=== PATIENT | female | born 1995 | race Caucasian/White ===

== ENCOUNTER 2017-12-28 15:22 | Inpatient (IN) | payer BC ==
[2017-12-28] MEDS ORDERED: Sodium Chloride 0.9% 10 ML Syringe FLUSH PRN (15:50)
[2017-12-28] MEDS ORDERED: Lactated Ringers 1,000 ML IV ONE ×2 (16:00→21:58)
[2017-12-28] MEDS ORDERED: Citric Acid/Sodium Citrate Solution 30 ML Cup ONE (16:14)
[2017-12-28] MEDS ORDERED: Metoclopramide 10 MG/2 ML SDV ONE (16:15)
--- NOTE | 2017-12-28 16:33 | PCM.LDHP ---
L&D History of Present Illness - General Date of Service: 12/28/17 Admit Problem/Dx: Patient Status Order with Admit Dx/Problem 12/28/17 15:51 Patient Status [ADT] Routine Admission Diagnosis/Problem Admission Diagnosis/Problem complications 12/28/17 16:23 33-3/7 week IUP, decreased activity, preeclampsia symptoms of swelling, headache, feeling unwell Source of Information: Patient History Limitations: Reports: No Limitations - History of Present Illness Introduction:: Roxann is a 22-year-old 1 para 0 white female presently at 33-2/7 weeks gestational age. who is seen in outpatient labor and delivery for complaints of decreased activity for the last 24 hours. Also reports increased edema, headache yesterday that was treated with Tylenol with no success but then with Advil which did improve it. She denies any headache today. She denies any contractions, bleeding, abdominal pain. She has an PAXTON of 02/13/2018 her history. She reports using C Dr. Coto 3 days ago and have laboratory tests done for high blood pressure. Do not have results of those available at this time. Review of her records shows blood pressure was 142/88 at that time. She reports approximately a 7 pound weight gain over the course of the last week. In the record it reports a 114+ pound weight gain over the course of the thus far. 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 PAXTON set at ultrasound done in mid second trimester. Patient reports she has another ultrasound scheduled for this week to evaluate less than optimal fundal height growth. She is sexually active beers. Had Chlamydia 5 years ago. No control at the time of conception. No abnormal Pap smears reported by the patient. Laboratory testing: One hour GTT 102, blood is A+. Chlamydia test was positive early in the and was treated with azithromycin Allergies: None Medications: 1. Tylenol 2. Aleve Past medical history: 1. Wrist fracture Past surgical history: 1. Tonsillectomy February 2017 Family history: Mother and father alive and well. Patient's 4 sisters all are alive and well. One sister did have a miscarriage. One brother who is alive and well. All grandparents are alive and well with the exception of paternal grandmother has heart disease. The same grandmother also had a set of twins. No bleeding, blood clotting, anesthesia problems noted in the family. Social history: Patient is single, she is not employed. She lives in [place]. Her significant other is Omar Yepez. She denies any significant loss of alcohol, drugs or tobacco. Review of systems: General patient feels somewhat unwell, reports increased swelling over the last several days even more so than she had before. She also reports decreased activity. Patient reports greater than 100 pound weight gain during . Laboratory testing from [facility] on 12/25/2017 show a an AST of 20, and a LT 24. Her hemoglobin, platelet count were normal. Uric acid was 4.6. Today there is a significant increase in her uric acid to 6.4. Her AST is normal at 22 and her a LT is normal at 15. Platelets are 288, white count is 10.72, hemoglobin is 11.9, platelets are 360,000. Ultrasound done in addition to biophysical profile shows a guerrero, viable, intrauterine in a vertex presentation. Amniotic fluid volume is normal with an GRICELDA of approximately 11. Her biophysical profile is 2 on a scale of 10. Only points given for adequate amniotic fluid. There is no tone, no activity and no breathing movements over 30 minutes. Biometrics: Estimated weight is 5 lbs. 3 oz. BPD is 8.6 consistent with 34-6/7 weeks gestational age, head circumference is 30.8 consistent with 34-3/7 weeks gestational age. Abdominal circumference is 30.2 consistent with 34-2/7 weeks gestational age. Femur length is 6.6 consistent with 34-0/7 weeks gestational age. Skin: Feels tight because of swelling. No rashes noted. Cardiovascular: Negative Respiratory: Negative Breasts: Changes associated with GI: Appetite is good. Last bowel movement was yesterday. No diarrhea or constipation or other problems noted. : Decreased activity. Reported less than optimal fundal height growth course last couple weeks with resultant order for ultrasound next week Musculoskeletal/extremities: Significant increase in swelling over the but especially within the last week. Neurological: Headache yesterday, none today. Treated headache with Tylenol and Aleve. Aleve brought reasonable results. physical exam: In general patient is a well-developed, well-nourished obese white female in no acute distress. She is alert and oriented 3. History of stated age Vital signs: Blood pressures ranging in the 140-160/85-105 range. Most recent blood pressure is 173/103. Findings consistent with preeclampsia with severe features. Skin is warm and dry without lesions. Patient has significant swelling in the lower extremities to 1+ pitting edema at minimum. HEENT, neck and back within normal limits. No thyromegaly noted Lungs are clear with good breath sounds in all lung flores. Cardiovascular exam shows regular without murmurs. Breast exam deferred. Abdomen is protuberant with fundal height of 34 cm. Baby in vertex presentation by Michele's Extremities show significant swelling in bilateral lower extremities. Neurological exam show 3+ deep tendon reflexes in the lower extremities. Upper extremity DTRs bilaterally are within normal limits. - Related Data Allergies/Adverse Reactions: Allergies Allergy/AdvReac Type Severity Reaction Status Date / Time No Known Allergies Allergy Verified 06/25/15 10:39 Home Medications: Home Meds . [No Known Home Meds] 06/25/15 [History] Past Medical History - Past Health History Medical/Surgical History: Denies Medical/Surgical History Social & Family History - Tobacco Use Smoking Status *Q: Never Smoker Second Hand Smoke Exposure: No - Recreational Drug Use Recreational Drug Use: No H&P Review of Systems - Review of Systems: Review Of Systems: See Below L&D Exam - Exam Exam: See Below - Vital Signs Vital Signs: Last Vital Signs Temp 37.1 C 12/28/17 15:38 Pulse 71 12/28/17 15:38 Resp 18 12/28/17 15:38 BP 145/98 H 12/28/17 15:38 Pulse Ox 99 12/28/17 15:38 Weight: 137.892 kg - Patient Data Lab Results Last 24 hrs: Laboratory Results - last 24 hr 12/28/17 Range/Units 16:00 WBC 10.72 H (3.98-10.04) K/mm3 RBC 4.38 (3.98-5.22) M/mm3 Hgb 11.9 (11.2-15.7) gm/L Hct 36.0 (34.1-44.9) % MCV 82.2 (79.4-94.8) fl MCH 27.2 (25.6-32.2) pg MCHC 33.1 (32.2-35.5) g/dl RDW Std Deviation 37.7 (36.4-46.3) fL Plt Count 282 (182-369) K/mm3 MPV 10.4 (9.4-12.3) fl Neut % (Auto) 79.4 H (34.0-71.1) % Lymph % (Auto) 12.7 L (19.3-51.7) % Harper % (Auto) 6.2 (4.7-12.5) % Eos % (Auto) 0.7 (0.7-5.8) Baso % (Auto) 0.3 (0.1-1.2) % Neut # (Auto) 8.52 H (1.56-6.13) K/mm3 Lymph # (Auto) 1.36 (1.18-3.74) K/mm3 Harper # (Auto) 0.66 H (0.24-0.36) K/mm3 Eos # (Auto) 0.07 (0.04-0.36) K/mm3 Baso # (Auto) 0.03 (0.01-0.08) K/mm3 Result Diagrams: 12/28/17 16:00 Problem List Initiated/Reviewed/Updated: Yes Orders Last 24hrs: Active Orders 24 hr Category Date Time Status Patient Status [ADT] Routine ADT 12/28/17 15:51 Active Non Stress Test [RC] PER UNIT ROUTINE Care 12/28/17 15:51 Active Peripheral IV Care [RC] . DIRECTED Care 12/28/17 15:52 Active Vital Signs [RC] PER UNIT ROUTINE Care 12/28/17 15:51 Active BPP wo NST [US] Stat Exams 12/28/17 16:05 Ordered ALANINE AMINOTRANSFERASE,ALT [CHEM] Stat Lab 12/28/17 16:00 Received ASPARTATE AMNIOTRANSFERASE,AST [CHEM] Stat Lab 12/28/17 16:00 Received LACTIC ACID [CHEM] Stat Lab 12/28/17 16:05 Received UA W/O MICROSCOPIC [URIN] Routine Lab 12/28/17 15:49 Ordered URIC ACID [CHEM] Stat Lab 12/28/17 16:00 Received Lactated Ringers [Ringers, Lactated] 1,000 ml Med 12/28/17 16:00 Active IV ONETIME Sodium Chloride 0.9% [Saline Flush] Med 12/28/17 15:50 Active 10 ml FLUSH ASDIRECTED PRN Peripheral IV Insertion Adult [OM.PC] Urgent Oth 12/28/17 15:50 Ordered Resuscitation Status Routine Resus Stat 12/28/17 15:50 Ordered Medication Orders Lactated Ringer's (Ringers, Lactated) 1,000 mls @ 500 mls/hr IV ONETIME ONE Stop: 12/28/17 17:59 Sodium Chloride (Saline Flush) 10 ml FLUSH ASDIRECTED PRN PRN Reason: Keep Vein Open Assessment/Plan Comment:: Assessment: 1. 33 and 2/7 week intrauterine with preeclampsia with severe features. 2. Nonreassuring testing with biophysical profile score of 2 out of 10. No tone, activity, breathing movements noted. Nonstress test is nonreactive. 3. Risk factors for surgery include: Preeclampsia, obesity, 33-2/7 weeks gestational age. 4. Blood is A+. 5. Patient undecided about nursing. 6. Group B strep status unknown-group B strep screen has been done and is pending Plan: 1. We'll arrange for delivery of the baby. Primary section is discussed in detail with the patient. Included in discussion are details about the procedure, risks, benefits, alternatives of care discussed in detail the patient. She appears to understand and wishes to proceed. She has signed a consent. She is aware that baby may need to be transferred for intensive care unit evaluation and care. Do not feel that time necessary for maternal transfer to tertiary level Center can be justified because of the nonreassuring testing 2. DVT prophylaxis with SCDs 3. Ancef 3 g IV preop 4. Type and screen to be done. 5. Dr. Kat-associate professor of library science to be in attendance for delivery 6. Will start magnesium sulfate postoperatively 7. Treat blood pressure as indicated postoperatively with labetalol.
[2017-12-28] MEDS ORDERED: Dextrose 5%-Lactated Ringers 1,000 ML IV SCH ×2 (17:00→19:40)
[2017-12-28] MEDS ORDERED: Metoclopramide 10 MG/2 ML SDV IVPUSH ONE ×2 (17:16→17:29)
[2017-12-28] MEDS ORDERED: Citric Acid/Sodium Citrate Solution 30 ML Cup PO ONE ×2 (17:16→17:29)
[2017-12-28] MEDS ORDERED: Morphine PF 10 MG/10 ML SDV ONE (17:18)
[2017-12-28] MEDS ORDERED: Oxytocin 10 Units/1 ML SDV ONE (17:19)
[2017-12-28] MEDS ORDERED: Ondansetron 4 MG/2 ML SDV ONE (17:20)
[2017-12-28] MEDS ORDERED: ceFAZolin 1 GM Vial ONE ×2 (17:21→18:09)
[2017-12-28] MEDS ORDERED: Bupivacaine 0.5% 30 ML SDV ONE (17:23)
--- NOTE | 2017-12-28 17:29 | US ---
Biophysical profile: Multiple real-time images were obtained. Comparison: No prior study available for current . Dates: Current ultrasound: PAXTON 02/05/18, gestational age 34 weeks 3 days presentation: Cephalic Placenta: Left lateral Amniotic fluid: GRICELDA of 11.5 cm Measurements: BPD: 8.61 cm - 34 weeks 6 days Head circumference: 30.81 cm - 34 weeks 3 days Abdominal circumference: 30.21 cm - 34 weeks 2 days Femur length: 6.58 cm - 34 weeks 0 days Estimated weight: 2366 g (5 lbs. 3 oz.), estimated weight of 37th percentile for age by current ultrasound Heart rate: 153 BPM Cervical length: Not well-visualized, not measured Biophysical profile: movement 0, breathing movement 0, tone 0, amniotic fluid volume 2 Impression: 1. Single intrauterine fetus currently cephalic in presentation. Dates as noted above. 2. Biophysical profile shows a score of 2 out of 8. Diagnostic code #5 Scanning technologist gave a preliminary report to Dr. Knight after the exam's completion.
[2017-12-28] MEDS ORDERED: Oxytocin/Lactated Ringers 10 UNIT/1,000 ML BAG IV SCH (17:30)
[2017-12-28] MEDS ORDERED: Lidocaine 1% 4 ML ONE (17:57)
[2017-12-28] MEDS ORDERED: Meperidine PF 50 MG/ML Syringe ONE (18:14)
[2017-12-28] MEDS ORDERED: fentaNYL 100 MCG/2 ML SDV ONE (18:39)
--- NOTE | 2017-12-28 18:57 | PCM.PREANE ---
Preanesthetic Assessment - Procedure Proposed Procedure: Emergent C Section - Anesthesia/Transfusion/Family Hx Anesthesia History: Prior Anesthesia Without Reaction Family History of Anesthesia Reaction: No Transfusion History: No Prior Transfusion(s) - Review of Systems General: No Symptoms Pulmonary: No Symptoms Cardiovascular: No Symptoms Gastrointestinal: No Symptoms Neurological: No Symptoms Other: Reports: None - Physical Assessment NPO Status Date: 12/28/17 NPO Status Time: 14:00 Pulse: 75 O2 Sat by Pulse Oximetry: 98 Respiratory Rate: 24 Blood Pressure: 137/84 Temperature: 36.6 C Vital Signs: Last Vital Signs Temp 37.1 C 12/28/17 15:38 Pulse 71 12/28/17 15:38 Resp 18 12/28/17 15:38 BP 145/98 H 12/28/17 15:38 Pulse Ox 99 12/28/17 15:38 Height: 1.68 m Weight: 137.892 kg ASA Class: 2E Mental Status: Alert & Oriented x3 Airway Class: Mallampati = 2 Dentition: Reports: Normal Dentition Thyro-Mental Finger Breadths: 3 Mouth Opening Finger Breadths: 3 ROM/Head Extension: Full Lungs: Clear to Auscultation, Normal Respiratory Effort Cardiovascular: Regular Rate, Regular Rhythm - Lab Values: Laboratory Last Values WBC 10.72 K/mm3 (3.98-10.04) H 12/28/17 16:00 RBC 4.38 M/mm3 (3.98-5.22) 12/28/17 16:00 Hgb 11.9 gm/L (11.2-15.7) 12/28/17 16:00 Hct 36.0 % (34.1-44.9) 12/28/17 16:00 MCV 82.2 fl (79.4-94.8) 12/28/17 16:00 MCH 27.2 pg (25.6-32.2) 12/28/17 16:00 MCHC 33.1 g/dl (32.2-35.5) 12/28/17 16:00 RDW Std Deviation 37.7 fL (36.4-46.3) 12/28/17 16:00 Plt Count 282 K/mm3 (182-369) 12/28/17 16:00 MPV 10.4 fl (9.4-12.3) 12/28/17 16:00 Neut % (Auto) 79.4 % (34.0-71.1) H 12/28/17 16:00 Lymph % (Auto) 12.7 % (19.3-51.7) L 12/28/17 16:00 Lyon % (Auto) 6.2 % (4.7-12.5) 12/28/17 16:00 Eos % (Auto) 0.7 (0.7-5.8) 12/28/17 16:00 Baso % (Auto) 0.3 % (0.1-1.2) 12/28/17 16:00 Neut # (Auto) 8.52 K/mm3 (1.56-6.13) H 12/28/17 16:00 Lymph # (Auto) 1.36 K/mm3 (1.18-3.74) 12/28/17 16:00 Lyon # (Auto) 0.66 K/mm3 (0.24-0.36) H 12/28/17 16:00 Eos # (Auto) 0.07 K/mm3 (0.04-0.36) 12/28/17 16:00 Baso # (Auto) 0.03 K/mm3 (0.01-0.08) 12/28/17 16:00 Lactic Acid 1.2 mmol/L (0.4-2.0) 12/28/17 16:05 Uric Acid 6.4 mg/dL (2.6-6.0) H 12/28/17 16:00 AST 22 U/L (15-37) 12/28/17 16:00 ALT 15 U/L (14-59) 12/28/17 16:00 Urine Color Yellow (Yellow) 12/28/17 15:49 Urine Appearance Slt cloudy (Clear) H 12/28/17 15:49 Urine pH 6.0 (5.0-8.0) 12/28/17 15:49 Ur Specific [place] 1.020 (1.005-1.030) 12/28/17 15:49 Urine Protein 3+ (Negative) H 12/28/17 15:49 Urine Glucose (UA) Negative (Negative) 12/28/17 15:49 Urine Ketones Negative (Negative) 12/28/17 15:49 Urine Occult Blood 1+ (Negative) H 12/28/17 15:49 Urine Nitrite Negative (Negative) 12/28/17 15:49 Urine Bilirubin Negative (Negative) 12/28/17 15:49 Urine Urobilinogen 0.2 (0.2-1.0) 12/28/17 15:49 Ur Leukocyte Esterase Negative (Negative) 12/28/17 15:49 Blood Type A POSITIVE 12/28/17 16:00 Gel Antibody Screen Negative 12/28/17 16:00 - Allergies Allergies/Adverse Reactions: Allergies Allergy/AdvReac Type Severity Reaction Status Date / Time No Known Allergies Allergy Verified 06/25/15 10:39 - Blood Blood Available: No Product(s) Available: None - Anesthesia Plan Pre-Op Medication Ordered: None - Acknowledgements Anesthesia Type Planned: Spinal (with duramorph as Ok'd with Dr Knight) Pt an Appropriate Candidate for the Planned Anesthesia: Yes Alternatives and Risks of Anesthesia Discussed w Pt/Guardian: Yes Pt/Guardian Understands and Agrees with Anesthesia Plan: Yes PreAnesthesia Questionnaire - Past Health History Medical/Surgical History: Denies Medical/Surgical History - SUBSTANCE USE Smoking Status *Q: Never Smoker Second Hand Smoke Exposure: No Recreational Drug Use History: No - HOME MEDS Home Medications: Home Meds . [No Known Home Meds] 06/25/15 [History] - CURRENT (IN HOUSE) MEDS Current Meds: Current Medications Dextrose/Lactated Ringer's (Dextrose 5%-Lactated Ringers) 1,000 mls @ 500 mls/ hr IV ASDIRECTED BALDEV Last Admin: 12/28/17 16:50 Dose: 500 mls/hr Oxytocin/Lactated Ringer's (Pitocin In Lr 10 Units/1,000 Ml) 10 unit in 1,000 mls @ 100 mls/hr IV ASDIRECTED BALDEV; Protocol Sodium Chloride (Saline Flush) 10 ml FLUSH ASDIRECTED PRN PRN Reason: Keep Vein Open Discontinued Medications Bupivacaine HCl (Marcaine 0.5%) Confirm Administered Dose 30 ml .ROUTE .STK-MED ONE Stop: 12/28/17 17:24 Cefazolin Sodium (Ancef) Confirm Administered Dose 2 gm .ROUTE .STK-MED ONE Stop: 12/28/17 17:22 Cefazolin Sodium (Ancef) Confirm Administered Dose 1 gm .ROUTE .STK-MED ONE Stop: 12/28/17 18:10 Citric Acid/Sodium Citrate (Bicitra Solution) Confirm Administered Dose 30 ml .ROUTE .STK-MED ONE Stop: 12/28/17 16:15 Citric Acid/Sodium Citrate (Bicitra Solution) 30 ml PO ONETIME ONE Stop: 12/28/17 17:17 Citric Acid/Sodium Citrate (Bicitra Solution) 30 ml PO ONETIME ONE Stop: 12/28/17 17:30 Fentanyl (Sublimaze) Confirm Administered Dose 100 mcg .ROUTE .STK-MED ONE Stop: 12/28/17 18:40 Lactated Ringer's (Ringers, Lactated) 1,000 mls @ 500 mls/hr IV ONETIME ONE Stop: 12/28/17 17:59 Last Admin: 12/28/17 16:00 Dose: 500 mls/hr Lidocaine HCl (Xylocaine-Mpf 1%) Confirm Administered Dose 4 mls @ as directed .ROUTE .STK-MED ONE Stop: 12/28/17 17:58 Meperidine HCl (Demerol) Confirm Administered Dose 50 mg .ROUTE .STK-MED ONE Stop: 12/28/17 18:15 Metoclopramide HCl (Reglan) Confirm Administered Dose 10 mg .ROUTE .STK-MED ONE Stop: 12/28/17 16:16 Metoclopramide HCl (Reglan) 10 mg IVPUSH ONETIME ONE Stop: 12/28/17 17:17 Metoclopramide HCl (Reglan) 10 mg IVPUSH ONETIME ONE Stop: 12/28/17 17:30 Morphine Sulfate (Duramorph Pf) Confirm Administered Dose 10 mg .ROUTE .STK-MED ONE Stop: 12/28/17 17:19 Ondansetron HCl (Zofran) Confirm Administered Dose 4 mg .ROUTE .STK-MED ONE Stop: 12/28/17 17:21 Oxytocin (Pitocin) Confirm Administered Dose 20 unit .ROUTE .STK-MED ONE Stop: 12/28/17 17:20
[2017-12-28] MEDS ORDERED: fentaNYL 100 MCG/2 ML SDV IVPUSH PRN (18:59)
[2017-12-28] MEDS ORDERED: Ondansetron 4 MG/2 ML SDV IVPUSH PRN (18:59)
[2017-12-28] MEDS ORDERED: HYDROmorphone 0.5 MG/0.5 ML SYRINGE IV ONE (18:59)
[2017-12-28] MEDS ORDERED: diphenhydrAMINE 50 MG/ML SDV IVPUSH PRN ×2 (18:59→19:40)
[2017-12-28] MEDS ORDERED: Meperidine PF 50 MG/ML Syringe IVPUSH PRN (18:59)
--- NOTE | 2017-12-28 19:02 | PCM.POSTAN ---
POST ANESTHESIA ASSESSMENT - MENTAL STATUS Mental Status: Alert, Oriented - VITAL SIGNS Pulse Rate: 68 SaO2: 99 Resp Rate: 20 Blood Pressure: 137/84 Temperature: 36.6 C - RESPIRATORY Respiratory Status: Respiratory Rate WNL, Airway Patent, O2 Saturation Stable, Elevated Respiratory Rate - CARDIOVASCULAR CV Status: Pulse Rate WNL, Blood Pressure Stable - GASTROINTESTINAL GI Status: No Symptoms - PAIN Pain Score: 2 (fentanyl given ) - POST OP HYDRATION Hydration Status: Adequate & Stable
--- NOTE | 2017-12-28 19:06 | PCM.OPNOTE ---
- General Post-Op/Procedure Note Date of Surgery/Procedure: 12/28/17 Operative Procedure(s): Emergent primary lower uterine segment transverse section through Pfannenstiel skin incision Findings: Uterus tubes and ovaries are consistent with a 33 week . There were normal in all appearance. Amniotic fluid was clear. Baby is in a vertex presentation. Normal amniotic fluid volume. Pre Op Diagnosis: 1. Nonreassuring testing-BPP score 2/10. 2. Preeclampsia with severe features. 3. 33-2/7 week intrauterine . 4. Reported decreased activity Post-Op Diagnosis: Same with delivery of a 5 # 1 oz male with Apgars of 0 , 1 and 7 at one, five and 10 mnutes respectively. Anesthesia Technique: Local, Spinal Other Anesthesia Type: Marcaine 0.5%20 mL local Primary Surgeon: Dejon Knight Secondary Surgeon: Moe Gregory Anesthesia Provider: Clarke Blanton Reason Dirt Contractor Was Necessary: Retraction, assistance, patient safety, quality of care. Role of Dirt Contractor: Retraction and assistance Pathology: Placenta Fluid Replacement, Intraop: 1,600 Output, Urine Amount: 200 EBL in mLs: 700 Drain/Tube Comments:: Indwelling bladder catheter Complications: None Condition: Good Free Text/Narrative:: Intake & Output 12/28/17 12/28/17 12/28/17 06:59 14:59 22:59 Intake Total 800 Balance 800 Surgery duration: 31 minutes Procedure: Patient was transferred to the room and placed in a sitting position. Spinal anesthesia was administered. After confirmation of adequate anesthesia patient was placed in a supine position with a wedge under her right side to facilitate left lateral positioning. The patient was prepped and draped in usual fashion after [place] catheter was already placed . The anesthetic was checked and found to be adequate. 20 mL of Marcaine 0.5% was injected locally in the Pfannenstiel incision site. The Pfannenstiel skin incision was then made carried down to skin subcutaneous and fascial layers. The fascia was then undermined superiorly and inferiorly to allow for adequate operating room. The recti muscles were midline and preperitoneal fat was bluntly dissected. Peritoneal cavity was entered longitudinally. The vesicouterine peritoneum was then incised transversely and bladder flap was developed. Myometrium was incised transversely to the level of the amniotic sac. This incision was extended bilaterally in a blunt fashion. The amniotic sac was then ruptured resulting clear amniotic fluid. A hand is placed in the low uterine segment and the baby's head was brought forth through the incision. The baby was completely delivered using fundal pressure in a routine fashion. Baby's cord was clamped x2 cut and baby was handed off to attending chief service dispatcher Dr Kat. Placenta was expressed after cord blood was obtained. Uterus was then exteriorized to allow for easier closure. The cervix was assessed and found to be dilated adequately to allow egress of blood. The uterus was closed in 2 layers. The first layer a running locked suture of 0 Monocryl, the second layer a running locked vertical mattress suture of 0 Monocryl. [id number] suture was placed at the left incision to control 1 bleeder. Hemostasis confirmed at this time. Sponge instrument needle counts are correct. The uterus was returned to the abdominal cavity and lateral gutters were cleared of blood. Once again sponge needle counts are correct. The anterior abdominal wall was closed with a #1 PDS suture from angle to angle. The subcutaneous area was found to be free of any bleeders. 3 interrupted sutures of 0 Monocryl were used to reapproximate the subcutaneous layer.Skin was closed with a running subcuticular stitch of 3-0 Monocryl in a vertical mattress suture fashion using a Nir needle. Prineo mesh/glue was then applied to further approximate the incision. It should be noted that patient received 3 g of Ancef preoperatively for infection prophylaxis and had Pitocin infused after delivery of the placenta to facilitate uterine contraction. She also had sequential compression stockings in place for DVT prophylaxis. Patient was discharged from the operating room in satisfactory condition.
[2017-12-28] MEDS ORDERED: Naloxone 0.4 MG/ML SDV IVPUSH PRN (19:40)
[2017-12-28] MEDS ORDERED: Lanolin 100% Cream 7 GM Tube TOP PRN (19:40)
[2017-12-28] MEDS ORDERED: Docusate Sodium 100 MG Cap PO PRN (19:40)
[2017-12-28] MEDS ORDERED: Ondansetron 4 MG/2 ML SDV IV PRN (19:40)
[2017-12-28] MEDS ORDERED: Acetaminophen/oxyCODONE 325-5 MG Tab PO PRN (19:40)
[2017-12-28] MEDS ORDERED: Magnesium Sulfate/Water 2 GM in Premix Bag 1 BAG IV SCH ×2 (19:40→21:15)
[2017-12-28] MEDS ORDERED: ePHEDrine 50 MG/ML SDV IVPUSH PRN (19:40)
[2017-12-28] MEDS ORDERED: Ibuprofen 800 MG Tab PO SCH (19:40)
[2017-12-28] MEDS: Magnesium Sulfate/Water 2 GM in Premix Bag 1 BAG IV SCH ×2 (20:15→20:30)
[2017-12-28] MEDS ORDERED: Magnesium Sulfate/Water 4 GM in Premix Bag 1 BAG IV SCH (20:40)
[2017-12-28] MEDS ORDERED: Simethicone 80 MG Tab.Chew PO SCH (22:00)
[2017-12-28] MEDS ORDERED: Magnesium Sulfate/Water 40 GM/1,000 ML BAG IV SCH (23:00)
[2017-12-29] MEDS ORDERED: Magnesium Sulfate/Water 40 GM/1,000 ML BAG IV SCH (00:15)
--- NOTE | 2017-12-29 05:29 | PCM.DCSUM1 ---
Discharge Summary - Hospital Course Free Text/Narrative:: Josephine is a 22-year-old 1 now para 0101 white female who is admitted on 12/28/2017 with reported decrease in activity. Patient is noted to have preeclampsia with severe features, nonreassuring testing with biophysical profile score of 2 out of 10. She was taken for emergent section to effect delivery of the baby. The baby was 5 lbs. 1 oz. male with Apgars of 0, 1 and 7 at one, 5 and 10 minutes respectively. Baby has since been transferred to [facility] [place]. The baby is doing poorly at this time and the staff as requested [id number] transferred to be with her critically ill . The patient herself is doing very well. She was placed on magnesium sulfate IV after delivery for the history of preeclampsia. Her blood pressure has been borderline to normal since delivery, urine output has been satisfactory and her reflexes are 2+/4. She is stable at this point. Her magnesium levels have been in therapeutic range. She is requesting transfer to [place] via ambulance to be with her critically ill child. - Discharge Data Discharge Date: 12/29/17 Discharge Disposition: Home, Self-Care 01 Condition: Good - Patient Summary/Data Operative Procedure(s) Performed: Emergent primary lower uterine segment transverse section through Pfannenstiel skin incision - Patient Instructions Diet: Regular Diet as Tolerated Activity: As Tolerated (No intercourse or tampons until seen back. No lifting greater than 15 pounds 1 week. No driving a car 1 week.) Driving: Do Not Drive Showering/Bathing: May Shower Wound/Incision Care: Keep Operative Site/Wound Site Clean and Dry Notify Provider of: Fever, Increased Pain, Swelling and Redness, Nausea and/or Vomiting - Discharge Plan Home Medications: Home Meds . [No Known Home Meds] 06/25/15 [History] Referrals: Yancy Babb MD [Primary Care Provider] - - Discharge Summary/Plan Comment DC Time >30 min.: No Discharge Summary/Plan Comment: Patient is being transferred to another hospital facility. There'll be seamless transfer of IV and medication care. Diet is regular, activity is as tolerated. - Patient Data Vitals - Most Recent: Last Vital Signs Temp 37.2 C 12/28/17 19:25 Pulse 68 12/28/17 19:02 Resp 14 12/28/17 19:40 BP 146/87 H 12/28/17 19:40 Pulse Ox 98 12/28/17 19:40 Weight - Most Recent: 137.892 kg I&O - Last 24 hours: Intake & Output 12/28/17 12/28/17 12/29/17 14:59 22:59 06:59 Intake Total 950 1600 Output Total 225 200 Balance 725 1400 Lab Results - Last 24 hrs: Laboratory Results - last 24 hr 12/28/17 12/28/17 12/28/17 Range/Units 15:49 16:00 16:00 WBC 10.72 H (3.98-10.04) K/mm3 RBC 4.38 (3.98-5.22) M/mm3 Hgb 11.9 (11.2-15.7) gm/L Hct 36.0 (34.1-44.9) % MCV 82.2 (79.4-94.8) fl MCH 27.2 (25.6-32.2) pg MCHC 33.1 (32.2-35.5) g/dl RDW Std Deviation 37.7 (36.4-46.3) fL Plt Count 282 (182-369) K/mm3 MPV 10.4 (9.4-12.3) fl Neut % (Auto) 79.4 H (34.0-71.1) % Lymph % (Auto) 12.7 L (19.3-51.7) % Hall % (Auto) 6.2 (4.7-12.5) % Eos % (Auto) 0.7 (0.7-5.8) Baso % (Auto) 0.3 (0.1-1.2) % Neut # (Auto) 8.52 H (1.56-6.13) K/mm3 Lymph # (Auto) 1.36 (1.18-3.74) K/mm3 Hall # (Auto) 0.66 H (0.24-0.36) K/mm3 Eos # (Auto) 0.07 (0.04-0.36) K/mm3 Baso # (Auto) 0.03 (0.01-0.08) K/mm3 Sodium (136-145) mEq/L Potassium (3.5-5.1) mEq/L Chloride (98-107) mEq/L Carbon Dioxide (21-32) mEq/L Anion Gap (5-15) BUN (7-18) mg/dL Creatinine (0.55-1.02) mg/dL Est Cr Clr Drug Dosing mL/min Estimated GFR (MDRD) (>60) mL/min BUN/Creatinine Ratio (14-18) Glucose (74-106) mg/dL Lactic Acid (0.4-2.0) mmol/L Uric Acid 6.4 H (2.6-6.0) mg/dL Calcium (8.5-10.1) mg/dL Magnesium (1.8-2.4) mg/dl Total Bilirubin (0.2-1.0) mg/dL AST 22 (15-37) U/L ALT 15 (14-59) U/L Alkaline Phosphatase (46-116) U/L Total Protein (6.4-8.2) g/dl Albumin (3.4-5.0) g/dl Globulin gm/dL Albumin/Globulin Ratio (1-2) Urine Color Yellow (Yellow) Urine Appearance Slt cloudy H (Clear) Urine pH 6.0 (5.0-8.0) Ur Specific Gabbs 1.020 (1.005-1.030) Urine Protein 3+ H (Negative) Urine Glucose (UA) Negative (Negative) Urine Ketones Negative (Negative) Urine Occult Blood 1+ H (Negative) Urine Nitrite Negative (Negative) Urine Bilirubin Negative (Negative) Urine Urobilinogen 0.2 (0.2-1.0) Ur Leukocyte Esterase Negative (Negative) Blood Type Gel Antibody Screen 12/28/17 12/28/17 12/28/17 Range/Units 16:00 16:05 23:06 WBC (3.98-10.04) K/mm3 RBC (3.98-5.22) M/mm3 Hgb (11.2-15.7) gm/L Hct (34.1-44.9) % MCV (79.4-94.8) fl MCH (25.6-32.2) pg MCHC (32.2-35.5) g/dl RDW Std Deviation (36.4-46.3) fL Plt Count (182-369) K/mm3 MPV (9.4-12.3) fl Neut % (Auto) (34.0-71.1) % Lymph % (Auto) (19.3-51.7) % Hall % (Auto) (4.7-12.5) % Eos % (Auto) (0.7-5.8) Baso % (Auto) (0.1-1.2) % Neut # (Auto) (1.56-6.13) K/mm3 Lymph # (Auto) (1.18-3.74) K/mm3 Hall # (Auto) (0.24-0.36) K/mm3 Eos # (Auto) (0.04-0.36) K/mm3 Baso # (Auto) (0.01-0.08) K/mm3 Sodium (136-145) mEq/L Potassium (3.5-5.1) mEq/L Chloride (98-107) mEq/L Carbon Dioxide (21-32) mEq/L Anion Gap (5-15) BUN (7-18) mg/dL Creatinine (0.55-1.02) mg/dL Est Cr Clr Drug Dosing mL/min Estimated GFR (MDRD) (>60) mL/min BUN/Creatinine Ratio (14-18) Glucose (74-106) mg/dL Lactic Acid 1.2 (0.4-2.0) mmol/L Uric Acid (2.6-6.0) mg/dL Calcium (8.5-10.1) mg/dL Magnesium 3.7 H (1.8-2.4) mg/dl Total Bilirubin (0.2-1.0) mg/dL AST (15-37) U/L ALT (14-59) U/L Alkaline Phosphatase (46-116) U/L Total Protein (6.4-8.2) g/dl Albumin (3.4-5.0) g/dl Globulin gm/dL Albumin/Globulin Ratio (1-2) Urine Color (Yellow) Urine Appearance (Clear) Urine pH (5.0-8.0) Ur Specific Gabbs (1.005-1.030) Urine Protein (Negative) Urine Glucose (UA) (Negative) Urine Ketones (Negative) Urine Occult Blood (Negative) Urine Nitrite (Negative) Urine Bilirubin (Negative) Urine Urobilinogen (0.2-1.0) Ur Leukocyte Esterase (Negative) Blood Type A POSITIVE Gel Antibody Screen Negative 12/29/17 12/29/17 12/29/17 Range/Units 04:09 04:09 04:09 WBC 13.22 H (3.98-10.04) K/mm3 RBC 4.42 (3.98-5.22) M/mm3 Hgb 12.1 (11.2-15.7) gm/L Hct 36.1 (34.1-44.9) % MCV 81.7 (79.4-94.8) fl MCH 27.4 (25.6-32.2) pg MCHC 33.5 (32.2-35.5) g/dl RDW Std Deviation 37.8 (36.4-46.3) fL Plt Count 268 (182-369) K/mm3 MPV 10.6 (9.4-12.3) fl Neut % (Auto) 78.1 H (34.0-71.1) % Lymph % (Auto) 15.4 L (19.3-51.7) % Hall % (Auto) 5.5 (4.7-12.5) % Eos % (Auto) 0.3 L (0.7-5.8) Baso % (Auto) 0.2 (0.1-1.2) % Neut # (Auto) 10.33 H (1.56-6.13) K/mm3 Lymph # (Auto) 2.03 (1.18-3.74) K/mm3 Hall # (Auto) 0.73 H (0.24-0.36) K/mm3 Eos # (Auto) 0.04 (0.04-0.36) K/mm3 Baso # (Auto) 0.03 (0.01-0.08) K/mm3 Sodium 136 (136-145) mEq/L Potassium 4.2 (3.5-5.1) mEq/L Chloride 104 (98-107) mEq/L Carbon Dioxide 24 (21-32) mEq/L Anion Gap 12.2 (5-15) BUN 19 H (7-18) mg/dL Creatinine 1.0 (0.55-1.02) mg/dL Est Cr Clr Drug Dosing 82.61 mL/min Estimated GFR (MDRD) > 60 (>60) mL/min BUN/Creatinine Ratio 19.0 H (14-18) Glucose 84 (74-106) mg/dL Lactic Acid (0.4-2.0) mmol/L Uric Acid 6.5 H (2.6-6.0) mg/dL Calcium 8.4 L (8.5-10.1) mg/dL Magnesium 5.6 H (1.8-2.4) mg/dl Total Bilirubin 0.2 (0.2-1.0) mg/dL AST 25 (15-37) U/L ALT 14 (14-59) U/L Alkaline Phosphatase 92 (46-116) U/L Total Protein 5.4 L (6.4-8.2) g/dl Albumin 2.0 L (3.4-5.0) g/dl Globulin 3.4 gm/dL Albumin/Globulin Ratio 0.6 L (1-2) Urine Color (Yellow) Urine Appearance (Clear) Urine pH (5.0-8.0) Ur Specific Gabbs (1.005-1.030) Urine Protein (Negative) Urine Glucose (UA) (Negative) Urine Ketones (Negative) Urine Occult Blood (Negative) Urine Nitrite (Negative) Urine Bilirubin (Negative) Urine Urobilinogen (0.2-1.0) Ur Leukocyte Esterase (Negative) Blood Type Gel Antibody Screen Med Orders - Current: Current Medications Diphenhydramine HCl (Benadryl) 25 mg IVPUSH Q6H PRN PRN Reason: Pruritis Diphenhydramine HCl (Benadryl) 25 mg IVPUSH Q6H PRN PRN Reason: Itching or Nausea Docusate Sodium (Colace) 100 mg PO Q12H PRN PRN Reason: Constipation Emollient Ointment (Lansinoh Hpa) 0 gm TOP ASDIRECTED PRN PRN Reason: Sore Nipples Ephedrine Sulfate (Ephedrine Sulfate) 5 mg IVPUSH SEECOMMENT PRN PRN Reason: Other Fentanyl (Sublimaze) 50 mcg IVPUSH Q5M PRN PRN Reason: Pain Dextrose/Lactated Ringer's (Dextrose 5%-Lactated Ringers) 1,000 mls @ 100 mls/ hr IV ASDIRECTED BALDEV Stop: 12/29/17 05:39 Last Infusion: 12/29/17 01:10 Dose: 75 mls/hr Magnesium Sulfate (Magnesium Sulfate 40 Gm In Water 1000 Ml) 40 gm in 1,000 mls @ 50 mls/hr IV ASDIRECTED [facility] Last Infusion: 12/29/17 01:10 Dose: 75 mls/hr Ibuprofen (Motrin) 800 mg PO Q8H [facility] Last Admin: 12/29/17 04:27 Dose: 800 mg Meperidine HCl (Demerol) 12.5 mg IVPUSH ONETIME PRN PRN Reason: Shivering Naloxone HCl (Narcan) 0.1 mg IVPUSH SEECOMMENT PRN PRN Reason: Respiratory Depression Ondansetron HCl (Zofran) 4 mg IVPUSH ONETIME PRN PRN Reason: Nausea/Vomiting Ondansetron HCl (Zofran) 4 mg IV Q4H PRN PRN Reason: Nausea/Vomiting Oxycodone/Acetaminophen (Percocet 325-5 Mg) 2 tab PO Q4H PRN PRN Reason: Pain (moderate 4-6) Last Admin: 12/29/17 04:28 Dose: 2 tab Prenat Multivit/[place]/Iron/Folic Ac ( Plus Iron) 1 each PO DAILY [facility] Simethicone (Simethicone) 80 mg PO PCBED [facility] Last Admin: 12/28/17 23:00 Dose: 80 mg Discontinued Medications Bupivacaine HCl (Marcaine 0.5%) Confirm Administered Dose 30 ml .ROUTE .STK-MED ONE Stop: 12/28/17 17:24 Last Admin: 12/28/17 18:00 Dose: 20 ml Cefazolin Sodium (Ancef) Confirm Administered Dose 2 gm .ROUTE .STK-MED ONE Stop: 12/28/17 17:22 Cefazolin Sodium (Ancef) Confirm Administered Dose 1 gm .ROUTE .STK-MED ONE Stop: 12/28/17 18:10 Citric Acid/Sodium Citrate (Bicitra Solution) Confirm Administered Dose 30 ml .ROUTE .STK-MED ONE Stop: 12/28/17 16:15 Citric Acid/Sodium Citrate (Bicitra Solution) 30 ml PO ONETIME ONE Stop: 12/28/17 17:17 Last Admin: 12/28/17 17:20 Dose: 30 ml Citric Acid/Sodium Citrate (Bicitra Solution) 30 ml PO ONETIME ONE Stop: 12/28/17 17:30 Fentanyl (Sublimaze) Confirm Administered Dose 100 mcg .ROUTE .STK-MED ONE Stop: 12/28/17 18:40 Hydromorphone HCl (Dilaudid) 0.5 mg IV ONETIME ONE Stop: 12/28/17 19:00 Lactated Ringer's (Ringers, Lactated) 1,000 mls @ 500 mls/hr IV ONETIME ONE Stop: 12/28/17 17:59 Last Admin: 12/28/17 16:00 Dose: 500 mls/hr Dextrose/Lactated Ringer's (Dextrose 5%-Lactated Ringers) 1,000 mls @ 500 mls/ hr IV ASDIRECTED BALDEV Last Admin: 12/28/17 16:50 Dose: 500 mls/hr Oxytocin/Lactated Ringer's (Pitocin In Lr 10 Units/1,000 Ml) 10 unit in 1,000 mls @ 100 mls/hr IV ASDIRECTED [facility]; Protocol Lidocaine HCl (Xylocaine-Mpf 1%) Confirm Administered Dose 4 mls @ as directed .ROUTE .STK-MED ONE Stop: 12/28/17 17:58 Magnesium Sulfate 2 gm/ Premix 50 mls @ 25 mls/hr IV Q1H [facility] Stop: 12/28/17 21:39 Magnesium Sulfate 4 gm/ Premix 100 mls @ 300 mls/hr IV SEECOMMENT BALDEV Stop: 12/28/17 20:59 Last Admin: 12/29/17 00:44 Dose: Not Given Magnesium Sulfate 2 gm/ Premix 50 mls @ 25 mls/hr IV Q1H [facility] Stop: 12/28/17 23:14 Magnesium Sulfate 2 gm/ Premix 50 mls @ 200 mls/hr IV Q1H [facility] Stop: 12/28/17 22:29 Last Admin: 12/28/17 20:30 Dose: 200 mls/hr Magnesium Sulfate (Magnesium Sulfate 40 Gm In Water 1000 Ml) 40 gm in 1,000 mls @ 50 mls/hr IV Q20H [facility] Lactated Ringer's (Ringers, Lactated) 1,000 mls @ 999 mls/hr IV .BOLUS ONE Stop: 12/28/17 22:58 Last Admin: 12/28/17 23:15 Dose: 999 mls/hr Meperidine HCl (Demerol) Confirm Administered Dose 50 mg .ROUTE .STK-MED ONE Stop: 12/28/17 18:15 Metoclopramide HCl (Reglan) Confirm Administered Dose 10 mg .ROUTE .STK-MED ONE Stop: 12/28/17 16:16 Metoclopramide HCl (Reglan) 10 mg IVPUSH ONETIME ONE Stop: 12/28/17 17:17 Last Admin: 12/28/17 17:13 Dose: 10 mg Metoclopramide HCl (Reglan) 10 mg IVPUSH ONETIME ONE Stop: 12/28/17 17:30 Morphine Sulfate (Duramorph Pf) Confirm Administered Dose 10 mg .ROUTE .STK-MED ONE Stop: 12/28/17 17:19 Ondansetron HCl (Zofran) Confirm Administered Dose 4 mg .ROUTE .STK-MED ONE Stop: 12/28/17 17:21 Oxytocin (Pitocin) Confirm Administered Dose 20 unit .ROUTE .STK-MED ONE Stop: 12/28/17 17:20 Sodium Chloride (Saline Flush) 10 ml FLUSH ASDIRECTED PRN PRN Reason: Keep Vein Open
--- NOTE | 2017-12-29 07:01 | PCM48HPAN ---
Post Anesthesia Note - EVALUATION WITHIN 48HRS OF ANESTHETIC Vital Signs in Normal Range: Yes Patient Participated in Evaluation: Yes (per floor RN) Respiratory Function Stable: Yes Airway Patent: Yes Cardiovascular Function Stable: Yes Hydration Status Stable: Yes Pain Control Satisfactory: Yes Nausea and Vomiting Control Satisfactory: Yes Mental Status Recovered: Yes Pulse Rate: 68 Resp Rate: 14 Temperature: 36.6 C Blood Pressure: 137/84 - COMMENTS/OBSERVATIONS Free Text/Narrative:: no anesthesia complications noted
[2017-12-29 07:18] VITALS: BP 160/109
[2017-12-29] MEDS ORDERED: Prenatal Multivitamin with Calcium/Folic Acid/Iron Tab PO SCH (09:00)
== END 2017-12-29 04:55 | DRG 540 ==
LOC: JD.OB 15:22 → JD.OBCHECK 15:22 → JD.OB 17:20 → OBSVTOIN 18:03 → JD.OB 18:04
PROVIDERS: ADMIT Obstetrics & Gynecology; ATTEND Obstetrics & Gynecology
PROC: 10D00Z1 Extraction of Products of Conception, Low, Open Approach (ICD-10-PCS; principal; 2017-12-28)
PROC: 6A550ZT Pheresis of Cord Blood Stem Cells, Single (ICD-10-PCS; 2017-12-28)
DX: O14.14 Severe pre-eclampsia complicating childbirth (principal); O99.214 Obesity complicating childbirth; E66.9 Obesity, unspecified; Z68.37 Body mass index [BMI] 37.0-37.9, adult; O36.8130 Decreased fetal movements, third trimester, not applicable or unspecified; Z3A.33 33 weeks gestation of pregnancy; Z37.0 Single live birth
CPT/HCPCS: 36415; 51702; 59025; 76816; 76819; 76819-26; 80053; 81003; 83605; 83735; 84450; 84460; 84550; 85025; 86850; 86900; 86901; 87653; 94762; A9270-GY; J0690; J2175; J2270; J2405; J2590; J2765; J3010; J3475; J7042; J7120

== ENCOUNTER 2018-01-02 23:08 | Emergency (ER) | payer BC ==
[2018-01-02] MEDS ORDERED: diphenhydrAMINE 50 MG/ML SDV IVPUSH ONE (23:48)
[2018-01-02] MEDS ORDERED: Ondansetron 4 MG/2 ML SDV IVPUSH ONE (23:48)
--- NOTE | 2018-01-03 00:05 | EDM.PDOC ---
ED HPI GENERAL MEDICAL PROBLEM - General Chief Complaint: Headache Stated Complaint: MIGRAINE AND BACK PAIN Time Seen by Provider: 01/02/18 23:24 Source of Information: Reports: Patient, Family History Limitations: Reports: No Limitations - History of Present Illness INITIAL COMMENTS - FREE TEXT/NARRATIVE: This is a 22-year-old female. Last Friday she had an emergency C- section and they did a spinal. She had onset of a headache on Friday and it is continually gotten worse since that time. She was discharged from the hospital on . They did the emergency because she had severe preeclampsia. The patient tells me that there is lots of pressure in her head and there is no change in her vision no change in hearing. She does get nausea but no vomiting. She does complain of some neck soreness as well and neck tightness. She notices that when she lies down and the headache eases up considerably and is about a 3 or 4 out of over 10 but as soon as she stands up the headache seems to come back and is an 8 or 9/10. She comes to the ER because she cannot stand the headache. She still has elevated blood pressure 172 /109 here in the ER. The mother states that her blood pressure and been up a little bit because of the preeclampsia and because of all the swelling took place. No fever no chills no other acute symptoms. Headache Pain Score (Numeric/FACES): 6 - Related Data Allergies Allergy/AdvReac Type Severity Reaction Status Date / Time No Known Allergies Allergy Verified 06/25/15 10:39 Home Meds: Home Meds Ibuprofen [Motrin] 600 mg PO Q6H PRN 01/02/18 [History] oxyCODONE 5 mg PO Q6H PRN 01/02/18 [History] Past Medical History - Past Health History Medical/Surgical History: Denies Medical/Surgical History Genitourinary History: Reports: STD Other Genitourinary History: Hx of clamydia x 2. Treated. 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: Musculoskeletal History: Reports: Fracture - Past Surgical History Female Surgical History: Reports: None, Section Social & Family History - Family History Family Medical History: Noncontributory - Tobacco Use Smoking Status *Q: Never Smoker Second Hand Smoke Exposure: No - Caffeine Use Caffeine Use: Reports: Soda - Recreational Drug Use Recreational Drug Use: No ED ROS GENERAL - Review of Systems Review Of Systems: See Below Constitutional: Denies: Fever, Chills HEENT: Reports: No Symptoms Respiratory: Denies: Shortness of Breath, Cough Cardiovascular: Denies: Chest Pain GI/Abdominal: Reports: Nausea. Denies: Vomiting : Reports: No Symptoms Musculoskeletal: Reports: Neck Pain Skin: Reports: No Symptoms Neurological: Reports: Headache Psychiatric: Reports: No Symptoms Hematologic/Lymphatic: Reports: No Symptoms - Physical Exam Exam: See Below Exam Limited By: No Limitations General Appearance: Alert, WD/WN, Mild Distress Eye Exam: Bilateral Eye: Normal Inspection, Other (Pupils are reactive) Ears: Normal External Exam, Normal Canal, Normal TMs Nose: Normal Inspection Throat/Mouth: Normal Inspection, Normal Lips, Normal Voice, No Airway Compromise Head Exam: Normocephalic Neck: Other (Neck is sore but she is able to move it and there is no nuchal rigidity noted) Respiratory/Chest: No Respiratory Distress, Lungs Clear, Normal Breath Sounds Cardiovascular: Regular Rate, Rhythm, No Murmur GI/Abdominal: Soft, Other (No significant abdominal tenderness on palpation) Neuro Exam (Abbreviated): Alert, Oriented, CN II-XII Intact, No Motor/Sensory Deficits Back Exam: Full Range of Motion Extremities: Normal Inspection, Other (Patient is noted to have lower extremity swelling) Psychiatric: Normal Affect, Normal Mood Skin Exam: Warm, Dry Course - Vital Signs Last Recorded V/S: Last Vital Signs Temp 99.1 F 01/02/18 23:17 Pulse 78 01/02/18 23:17 Resp 20 01/02/18 23:17 BP 172/109 H 01/02/18 23:30 Pulse Ox 98 01/02/18 23:17 - Orders/Labs/Meds Orders: Active Orders 24 hr Category Date Time Status Ondansetron [Zofran] Med 01/03/18 02:54 Active 4 mg IVPUSH ONETIME PRN Sodium Chloride 0.9% [Normal Saline] 1,000 ml Med 01/02/18 23:45 Active IV ASDIRECTED Medication Orders Sodium Chloride (Normal Saline) 1,000 mls @ 500 mls/hr IV ASDIRECTED BALDEV Last Admin: 01/03/18 03:12 Dose: 500 mls/hr Infusion: 01/03/18 02:27 Dose: 500 mls/hr Admin: 01/03/18 00:27 Dose: 500 mls/hr Ondansetron HCl (Zofran) 4 mg IVPUSH ONETIME PRN PRN Reason: Nausea/Vomiting Labs: Laboratory Tests 01/03/18 01/03/18 Range/Units 00:05 00:05 WBC 11.31 H (3.98-10.04) K/mm3 RBC 4.06 (3.98-5.22) M/mm3 Hgb 11.0 L (11.2-15.7) gm/L Hct 34.2 (34.1-44.9) % MCV 84.2 (79.4-94.8) fl MCH 27.1 (25.6-32.2) pg MCHC 32.2 (32.2-35.5) g/dl RDW Std Deviation 41.2 (36.4-46.3) fL Plt Count 353 (182-369) K/mm3 MPV 10.1 (9.4-12.3) fl Neut % (Auto) 78.8 H (34.0-71.1) % Lymph % (Auto) 13.8 L (19.3-51.7) % Ashley % (Auto) 5.7 (4.7-12.5) % Eos % (Auto) 1.1 (0.7-5.8) Baso % (Auto) 0.2 (0.1-1.2) % Neut # (Auto) 8.93 H (1.56-6.13) K/mm3 Lymph # (Auto) 1.56 (1.18-3.74) K/mm3 Ashley # (Auto) 0.64 H (0.24-0.36) K/mm3 Eos # (Auto) 0.12 (0.04-0.36) K/mm3 Baso # (Auto) 0.02 (0.01-0.08) K/mm3 Sodium 141 (136-145) mEq/L Potassium 4.4 (3.5-5.1) mEq/L Chloride 106 (98-107) mEq/L Carbon Dioxide 25 (21-32) mEq/L Anion Gap 14.4 (5-15) BUN 10 (7-18) mg/dL Creatinine 1.1 H (0.55-1.02) mg/dL Est Cr Clr Drug Dosing 75.10 mL/min Estimated GFR (MDRD) > 60 (>60) mL/min BUN/Creatinine Ratio 9.1 L (14-18) Glucose 88 (74-106) mg/dL Calcium 9.3 (8.5-10.1) mg/dL Total Bilirubin 0.3 (0.2-1.0) mg/dL AST 37 (15-37) U/L ALT 40 (14-59) U/L Alkaline Phosphatase 92 (46-116) U/L Total Protein 6.5 (6.4-8.2) g/dl Albumin 2.5 L (3.4-5.0) g/dl Globulin 4.0 gm/dL Albumin/Globulin Ratio 0.6 L (1-2) Meds: Medications Generic Name Dose Route Start Last Admin Trade Name Freq PRN Reason Stop Dose Admin Sodium Chloride 1,000 mls @ 500 mls/hr 01/02/18 23:45 01/03/18 03:12 Normal Saline IV 500 mls/hr ASDIRECTED BALDEV Administration Ondansetron HCl 4 mg 01/03/18 02:54 Zofran IVPUSH ONETIME PRN Nausea/Vomiting Discontinued Medications Generic Name Dose Route Start Last Admin Trade Name Freq PRN Reason Stop Dose Admin Diphenhydramine HCl 25 mg 01/02/18 23:48 01/03/18 00:36 Benadryl IVPUSH 01/02/18 23:49 25 mg ONETIME ONE Administration Lactated Ringer's 1,000 mls @ 999 mls/hr 01/03/18 02:54 01/03/18 03:27 Ringers, Lactated IV 01/03/18 03:54 Not Given ONETIME ONE Ondansetron HCl 4 mg 01/02/18 23:48 01/03/18 00:28 Zofran IVPUSH 01/02/18 23:49 4 mg ONETIME ONE Administration - Re-Assessments/Exams Free Text/Narrative Re-Assessment/Exam: 01/03/18 01:32 The patient is feeling slightly better with the fluids and the medications. However she still has a headache and sitting up makes it worse. I did speak to the RADIO STATION ENGINEER Supriya Laird about a spinal headache and she will come to the ER and do a blood patch for the patient. I explained this procedure to the patient herself and she wants it done. 01/03/18 04:28 The blood patch was successfully done. We are waiting the 2 hours for the blood to coagulate and hopefully stay in place before we send the patient home. Her estimated time to leave is about 4:40 AM. 01/03/18 04:51 The patient is feeling much better her headache is markedly better. She wants to go home now. I encouraged her to the gentle activity and lots of bedrest over the rest of the weekend to make sure the blood patch and continues to work. Departure - Departure Time of Disposition: 04:51 Disposition: Home, Self-Care 01 Condition: Good Clinical Impression: Spinal headache complicating labor and delivery, condition - Discharge Information Referrals: Yancy Babb MD [Primary Care Provider] - Forms: ED Department Discharge Additional Instructions: For the rest of the weekend gentle activity, continued to lay down and rest and sleep as much as possible, follow-up with your OB doctor as scheduled, if there seems to be a worsening of your headache despite the procedure we did in the ER then return to the ER for reevaluation. - My Orders Last 24 Hours: My Active Orders 01/02/18 23:45 Sodium Chloride 0.9% [Normal Saline] 1,000 ml IV ASDIRECTED - Assessment/Plan Last 24 Hours: My Active Orders 01/02/18 23:45 Sodium Chloride 0.9% [Normal Saline] 1,000 ml IV ASDIRECTED
[2018-01-03] MEDS: Sodium Chloride 0.9% 1,000 ML IV SCH ×2 (00:27→03:12)
[2018-01-03] MEDS ORDERED: Ondansetron 4 MG/2 ML SDV IVPUSH PRN (02:54)
[2018-01-03] MEDS ORDERED: Lactated Ringers 1,000 ML IV ONE (02:54)
--- NOTE | 2018-01-03 03:23 | PCM.SN ---
- Free Text/Narrative Note: Epidural Blood Patch for Post dural puncture headache 01/03/2018 Start: 0200 Stop: 0240 Called in to ER for post dural puncture headache. Previous emergency from 12/28/17 with 3 attempts noted for spinal placement with a 22 gauge needle. Patient and her family informed of the risks of an epidural blood patch including: headache, infection, nerve damage, sore back, and bleeding. She wishes to proceed with the blood patch at this time. A lab general ophthalmologist was called to draw 20ml of blood from the patients left antecubital with sterile technique. Sterile technique throughout Epidural placement. Masks were worn by everyone in the room. Time out performed. Skin was localized with 3ml of 1% lidocaine at L2-3. Loss of resistance technique was achieved at 6 cm. No fluid was noted with placement. Patient felt a transient paresthesia to the right leg which went away with needle repositioning. Prior to injection of the blood the patient was informed there would be a lot of pressure with injection and to let me know when it was intolerable. 18 ml of blood was injection successfully. The patient was instructed to lay flat for one hour and minimal movement for the next hour. She will then be able to return home where she should rest and increase her oral fluid intake as tolerated. She tolerated the procedure well. She did state her headache was improving. Her neck pain was noted to be about the same as before. Kamini Kinsey CRNA
[2018-01-03 05:03] VITALS: BP 158/103
== END 2018-01-03 05:07 | disposition home or self-care (01) ==
LOC: JD.ED 23:08
DX: O89.4 Spinal and epidural anesthesia-induced headache during the puerperium (principal); Z86.19 Personal history of other infectious and parasitic diseases
CPT/HCPCS: 36415; 62273; 80053; 85025; 96361; 96374; 99284; J1200; J2405; J7040